=== PATIENT | female | born 1980 | race Caucasian/White ===

== ENCOUNTER 2018-03-23 22:22 | Emergency (ER) | payer OTHER ==
[~2018-03-23] VITALS: Ht 154.9 cm; Wt 54.4 kg
[~2018-03-23 22:22] MED LIST: LORAZEPAM 1 MG T1 M1; PHENERGAN 25 MG25 M1 PO; PHENTERMINE H37.5 MG; VICODIN 5-5001 EACH PO
[2018-03-23] MEDS ORDERED: ADDERALL 20 MG20 M1 (22:38)
[2018-03-23 23:13] VITALS: BP 121/71
== END 2018-03-23 23:15 | disposition home or self-care (01) ==
LOC: M.ERS 22:22
DX: M79.671 Pain in right foot (principal); Z88.2 Allergy status to sulfonamides; Z88.0 Allergy status to penicillin